=== PATIENT | female | born 1965 | race African-American/Black ===

== ENCOUNTER 2023-09-16 11:35 | Emergency (ER) | payer BC ==
[~2023-09-16] VITALS: Ht 175.3 cm; Wt 90.0 kg
[2023-09-16 11:44] VITALS: O2SAT 100
[2023-09-16 12:03] LABS: BASOPHILS % 1.5 % (0.0-2.0); EOSINOPHILS % 1.9 % (0.0-5.0); HEMATOCRIT. 37.3 % (36.0-48.0); HEMOGLOBIN. 12.3 g/dL (12.0-16.0); LYMPHOCYTES % 20.6 % (20.0-50.0); MEAN CORPUSCULAR HEMOGLOBIN 29.5 pg (28.0-32.0); MEAN CORPUSCULAR VOLUME 89.5 fL (81.0-99.0); MEAN PLATELET VOLUME 8.9 fl (7.4-10.4); PLATELET 143 x1000/uL (130-400); RED BLOOD CELL COUNT 4.17 mill/uL (4.2-5.4); WHITE BLOOD COUNT 6.5 x1000/uL (4.5-11.0)
[2023-09-16 12:29] LABS: ALANINE AMINOTRANSFERASE 19 IU/L (10-49); ALBUMIN 3.6 g/dL (3.2-4.8); ASPARTATE AMINOTRANSFERASE 52 IU/L (<34); BILIRUBIN TOTAL 1.4 mg/dL (0.1-1.0); CALCIUM 8.6 mg/dL (8.7-10.4); CARBON DIOXIDE 20 mEq/L (21-32); CHLORIDE 107 mEq/L (98-107); CREATININE 2.5 mg/dL (0.6-1.0); GLUCOSE 134 mg/dL (70-105); POTASSIUM 4.2 mEq/L (3.5-5.1); SODIUM 135 mEq/L (136-145); TROPONIN I HIGH SENSITIVITY 11 ng/L (3.0-34); UREA NITROGEN BLOOD 25 mg/dL (9-23)
[2023-09-16 13:15] LABS: CLARITY URINE CLOUDY (CLEAR); COLOR URINE YELLOW (YELLOW); GLUCOSE URINE 3+ (NEGATIVE); KETONES URINE NEGATIVE (NEGATIVE); LEUKOCYTE ESTERASE URINE NEGATIVE (NEGATIVE); NITRITE URINE NEGATIVE (NEGATIVE); OCCULT BLOOD URINE NEGATIVE (NEGATIVE); PROTEIN URINE TRACE (NEGATIVE); SPECIFIC GRAVITY URINE 1.021 (1.005-1.030); UROBILINOGEN URINE 0.2 E.U./dL (0.2-1.0)
[2023-09-16 13:29] LABS: RBC URINE 0-2 /hpf (0-2)
[2023-09-16 13:30] LABS: BACTERIA URINE 1+; SQUAMOUS EPITHELIAL CELL URINE 2+ /lpf (RARE/1+); YEAST URINE NONE SEEN
[2023-09-16] MEDS ORDERED: SENN-139 MT (15:38)
[2023-09-16] MEDS ORDERED: NA P133E4 RC (15:38)
[2023-09-16] MEDS ORDERED: POLY17PO3 MT (15:38)
[2023-09-16 16:13] VITALS: BP 137/71; PULSE 75; RESP 20; TEMP 97.6
== END 2023-09-16 16:14 | disposition home or self-care (01) ==
LOC: ER 11:35
DX: K59.00 Constipation, unspecified (principal); E11.9 Type 2 diabetes mellitus without complications; N28.89 Other specified disorders of kidney and ureter
CPT/HCPCS: 36415; 71045; 80053; 81003; 81025; 84484; 85025; 93005; 99285

== ENCOUNTER 2023-10-30 00:29 | Inpatient (IN) | payer MEDICAID ==
[~2023-10-30] VITALS: Ht 154.2 cm; Wt 97.8 kg
[~2023-10-30 00:29] MED LIST: AMLO10TA80 PO; CALC-1249 MT; CARB15DR EACHEYE; CHOL400D7 PO; CRES10 PO; DAPA10TA PO; FINE20TA PO; FISH1CAP34 PO; FURO-151 MT; FURO80TA87 MT; LEVO88TA7 PO; LIOT5TAB11 MT; MECL-299 MT; NA P133E4 RC; POLY17PO3 MT; SENN-139 MT; SPIR50TA5 MT
[2023-10-30 01:01] LABS: BASOPHILS % 1.4 % (0.0-2.0); EOSINOPHILS % 2.7 % (0.0-5.0); HEMATOCRIT. 36.5 % (36.0-48.0); HEMOGLOBIN. 11.9 g/dL (12.0-16.0); MEAN CORPUSCULAR HEMOGLOBIN 29.7 pg (28.0-32.0); MEAN CORPUSCULAR HGB CONC 32.6 g/dL (31.0-37.0); MEAN CORPUSCULAR VOLUME 90.9 fL (81.0-99.0); MEAN PLATELET VOLUME 10.1 fl (7.4-10.4); MONOCYTES % 8.1 % (2.0-8.0); NEUTROPHILS % 75.8 % (40.0-76.0); PLATELET 112 x1000/uL (130-400); RED BLOOD CELL COUNT 4.02 mill/uL (4.2-5.4); RED CELL DISTRIBUTION WIDTH 18.1 % (11.6-14.6); WHITE BLOOD COUNT 6.7 x1000/uL (4.5-11.0)
[2023-10-30 01:10] LABS: CARBON DIOXIDE 19 mEq/L (21-32); CHLORIDE 109 mEq/L (98-107); POTASSIUM 5.7 mEq/L (3.5-5.1); SODIUM 136 mEq/L (136-145)
[2023-10-30 01:11] LABS: CALCIUM 8.5 mg/dL (8.7-10.4)
[2023-10-30 01:16] LABS: CREATININE 3.4 mg/dL (0.6-1.0); GLUCOSE 118 mg/dL (70-105); TROPONIN I HIGH SENSITIVITY 12 ng/L (3.0-34); UREA NITROGEN BLOOD 57 mg/dL (9-23)
[2023-10-30 01:17] LABS: ACETAMINOPHEN < 2 ug/mL (10-30); ALANINE AMINOTRANSFERASE 60 IU/L (10-49); ASPARTATE AMINOTRANSFERASE 104 IU/L (<34)
[2023-10-30 01:18] LABS: BILIRUBIN TOTAL 3.1 mg/dL (0.1-1.0); CREATINE KINASE 119 IU/L (34-145); PROTEIN TOTAL 7.4 g/dL (6.0-8.3)
[2023-10-30 01:20] LABS: THYROID STIMULATING HORMONE 3.14 uIU/mL (0.55-4.78)
[2023-10-30 01:22] LABS: ETHANOL BLOOD < 10 mg/dL (<10)
[2023-10-30 01:45] LABS: INDEX HEMOLYSI 0 (1-3)
[2023-10-30 01:51] LABS: AMMONIA 214 uMol/L (<32)
[2023-10-30] MEDS: LACTULOSE 20G/30ML UDC PO ONE (03:07)
[2023-10-30 03:24] LABS: TROPONIN I HIGH SENSITIVITY 10 ng/L (3.0-34)
[2023-10-30] MEDS: LACTULOSE 20G/30ML UDC PO SCH (08:01)
[2023-10-30] MEDS ORDERED: ACETAMINOPHEN 325MG TABLET PO PRN (10:30)
[2023-10-30] MEDS ORDERED: METOCLOPRAMIDE HCL 10MG/2ML VIAL IV NR (10:30)
[2023-10-30] MEDS ORDERED: CLONIDINE 0.1MG TABLET PO PRN (10:30)
[2023-10-30] MEDS ORDERED: ONDANSETRON HCL 4MG/2ML INJ IV PRN (10:30)
[2023-10-30 11:31] LABS: INR 1.3; PROTHROMBIN TIME 14.6 sec (9.6-11.0)
[2023-10-30] MEDS: NA PHOS,M-B/NA PHOS,DI-BA ENEMA 118ML PR NR (12:41)
[2023-10-30] MEDS: RIFAXIMIN 550 MG TABLET PO SCH (12:42)
[2023-10-30] MEDS ORDERED: LACTULOSE 20G/30ML UDC PO SCH (14:00)
[2023-10-30] MEDS ORDERED: LACTULOSE ENEMA 1,000ML BOTTLE PR SCH (14:45)
[2023-10-30] MEDS: LACTULOSE 300 ML in WATER FOR IRRIGATION,STERILE 700 ML IR SCH (16:44)
[2023-10-30] MEDS ORDERED: SODIUM POLYSTYRENE SULFONATE 15 G/60 ML BOT PO NR (17:30)
[2023-10-30] MEDS ORDERED: SODIUM BICARBONATE 50 MEQ in SODIUM CHLORIDE 0.45% 950 ML IV SCH (18:00)
[2023-10-30] MEDS: SODIUM BICARBONATE 50 MEQ in SODIUM CHLORIDE 0.45% 950 ML IV SCH (18:15)
[2023-10-30 20:15] LABS: CHLORIDE 110 mEq/L (98-107); POTASSIUM 5.7 mEq/L (3.5-5.1); SODIUM 139 mEq/L (136-145)
[2023-10-30 20:16] LABS: CARBON DIOXIDE 16 mEq/L (21-32)
[2023-10-30 20:17] LABS: CALCIUM 8.8 mg/dL (8.7-10.4)
[2023-10-30 20:21] LABS: GLUCOSE 116 mg/dL (70-105)
[2023-10-30 20:22] LABS: UREA NITROGEN BLOOD 62 mg/dL (9-23)
[2023-10-30 20:24] LABS: PHOSPHORUS 5.8 mg/dL (2.5-4.9)
[2023-10-30 20:27] LABS: AMMONIA 185 uMol/L (<32)
[2023-10-30 21:05] VITALS: BP 133/81; PULSE 75; RESP 18; TEMP 98
[2023-10-31] VITALS (10 sets, daily range): BP systolic 109–147; BP diastolic 54–85; PULSE 68–116; RESP 18–23; TEMP 95.9–98.2; O2SAT 95–99
[2023-10-31] MEDS: LACTULOSE 20G/30ML UDC PO SCH (04:00)
[2023-10-31 09:35] LABS: HEMATOCRIT. 35.4 % (36.0-48.0); HEMOGLOBIN. 11.5 g/dL (12.0-16.0); MEAN CORPUSCULAR HEMOGLOBIN 29.7 pg (28.0-32.0); MEAN CORPUSCULAR HGB CONC 32.5 g/dL (31.0-37.0); MEAN CORPUSCULAR VOLUME 91.5 fL (81.0-99.0); MEAN PLATELET VOLUME 9.8 fl (7.4-10.4); PLATELET 108 x1000/uL (130-400); RED BLOOD CELL COUNT 3.87 mill/uL (4.2-5.4); RED CELL DISTRIBUTION WIDTH 19.7 % (11.6-14.6); WHITE BLOOD COUNT 10.9 x1000/uL (4.5-11.0)
[2023-10-31 09:37] LABS: BG BASE EXCESS -9.2 mmol/L (-2.0-2.0); BG CARBOXYHEMOGLOBIN 0.6 % (0.5-1.5); BG FRACTION INSPIRED OXYGEN 30; BG HCO3 ACT 14.8 mmol/L (22.0-26.0); BG METHEMOGLOBIN 0.4 % (0.0-1.5); BG OXYGEN SATURATION 81.8 % (92.0-98.5); BG PCO2 27.2 mmHg (35.0-45.0); BG PH 7.354 (7.350-7.450); BG PO2 50.5 mmHg (75.0-100.0); BG SAMPLE SITE RIGHT RADIAL; BG TOTAL HEMOGLOBIN 12.2 g/dL (12.0-18.0); BG VENT MODE NASAL CANNULA
[2023-10-31 09:38] LABS: DIFFERENTIAL COMMENT 1; POTASSIUM 4.9 mEq/L (3.5-5.1)
[2023-10-31 09:40] LABS: CALCIUM 9.2 mg/dL (8.7-10.4)
[2023-10-31] MEDS: DOCUSATE SODIUM 100MG CAPSULE PO SCH (09:42)
[2023-10-31 09:44] LABS: CREATININE 4.1 mg/dL (0.6-1.0)
[2023-10-31 09:54] LABS: AMMONIA 71 uMol/L (<32)
[2023-10-31] MEDS ORDERED: SODIUM BICARBONATE 8.4% 1 MEQ/ML 50ML SYR IV NR (10:30)
[2023-10-31] MEDS: LORAZEPAM 2MG/ML INJ IV NR (10:31)
[2023-10-31] MEDS: IPRATROPIUM/ALBUTEROL 0.5-3(2.5)MG/3ML NEB HHN PRN (10:41)
[2023-10-31] MEDS: SODIUM BICARBONATE 8.4% 1 MEQ/ML 50ML SYR IV NR (11:41)
[2023-10-31] MEDS ORDERED: SODIUM BICARBONATE 8.4% MEQ/ML 50ML VIAL IV NR (12:00)
[2023-10-31] MEDS ORDERED: ALBUMIN HUMAN 25GM/100ML (25%) IV ONE (15:30)
[2023-10-31 16:22] LABS: D-DIMER 3.22 mg/L FEU (<0.50); INR 1.4; PROTHROMBIN TIME 14.9 sec (9.6-11.0)
[2023-10-31 17:02] LABS: ANISOCYTOSIS 1+; PLATELET ESTIMATE DECREASED
[2023-10-31] MEDS: ALBUMIN HUMAN 25GM/100ML (25%) IV SCH (17:31)
[2023-10-31] MEDS: OCTREOTIDE 1,000 MCG in SODIUM CHLORIDE 0.9% 98 ML IV SCH (17:34)
[2023-10-31 19:01] LABS: LACTIC ACID 7.8 mmol/L (0.4-2.0)
[2023-10-31 22:58] LABS: BG BASE EXCESS -8.2 mmol/L (-2.0-2.0); BG CARBOXYHEMOGLOBIN 0.3 % (0.5-1.5); BG FRACTION INSPIRED OXYGEN 32; BG HCO3 ACT 14.4 mmol/L (22.0-26.0); BG METHEMOGLOBIN 0.1 % (0.0-1.5); BG OXYHEMOGLOBIN 97.6 % (94.0-97.0); BG PCO2 22.1 mmHg (35.0-45.0); BG PH 7.433 (7.350-7.450); BG PO2 116.9 mmHg (75.0-100.0); BG SAMPLE SITE RIGHT BRACHIAL; BG TOTAL HEMOGLOBIN 10.5 g/dL (12.0-18.0); BG VENT MODE NASAL CANNULA
[2023-11-01] VITALS (8 sets, daily range): BP systolic 96–154; BP diastolic 45–101; PULSE 60–85; RESP 11–27; TEMP 96.6–98.2
[2023-11-01 06:56] LABS: POTASSIUM 4.9 mEq/L (3.5-5.1)
[2023-11-01 06:58] LABS: CALCIUM 9.3 mg/dL (8.7-10.4)
[2023-11-01 06:59] LABS: BASOPHILS % 0.9 % (0.0-2.0); EOSINOPHILS % 4.6 % (0.0-5.0); HEMATOCRIT. 28.9 % (36.0-48.0); LYMPHOCYTES % 14.5 % (20.0-50.0); MEAN CORPUSCULAR HEMOGLOBIN 29.4 pg (28.0-32.0); MEAN CORPUSCULAR HGB CONC 33.2 g/dL (31.0-37.0); MEAN CORPUSCULAR VOLUME 88.6 fL (81.0-99.0); MONOCYTES % 7.7 % (2.0-8.0); NEUTROPHILS % 72.3 % (40.0-76.0); PLATELET 60 x1000/uL (130-400); RED BLOOD CELL COUNT 3.26 mill/uL (4.2-5.4); RED CELL DISTRIBUTION WIDTH 19.3 % (11.6-14.6); WHITE BLOOD COUNT 5.1 x1000/uL (4.5-11.0)
[2023-11-01 07:02] LABS: CREATININE 4.4 mg/dL (0.6-1.0)
[2023-11-01 07:15] LABS: PHOSPHORUS 6.8 mg/dL (2.5-4.9)
[2023-11-01 07:21] LABS: INR 1.5; PROTHROMBIN TIME 16.4 sec (9.6-11.0)
[2023-11-01] MEDS ORDERED: LIDOCAINE HCL 1% 10 MG/ML 10ML VIAL ONE (08:09)
[2023-11-01] MEDS ORDERED: SODIUM BICARBONATE 4% (2.4MEQ) 5ML VIAL IV ONE (08:09)
[2023-11-01 09:06] LABS: HEMOGLOBIN. 9.6 g/dL (12.0-16.0)
[2023-11-01] MEDS: ALBUMIN HUMAN 25GM/100ML (25%) IV SCH (10:09)
[2023-11-01] MEDS: PHYTONADIONE 10MG/ML INJ SUBCUT SCH (10:09)
[2023-11-01 11:00] LABS: BODY FLUID MONOCYTES 13 %
[2023-11-01 11:01] LABS: BODY FLUID RBC 2330 /cu mm (0-2000); BODY FLUID WBC 130 /cu mm (0-200)
[2023-11-01 12:32] LABS: HEPATITIS B SURFACE ANTIGEN NEGATIVE (Negative)
[2023-11-01 12:52] LABS: HEPATITIS A AB IGM NEGATIVE (Negative)
[2023-11-01 12:53] LABS: HEPATITIS B CORE AB IGM NEGATIVE (Negative); HEPATITIS C AB NON REACTIVE (Neg) (Negative)
[2023-11-01 13:09] LABS: AMMONIA 38 uMol/L (<32)
[2023-11-02] VITALS (18 sets, daily range): BP systolic 90–128; BP diastolic 41–96; PULSE 58–78; RESP 11–39; TEMP 96.8–98.8
[2023-11-02] MEDS: ACETAMINOPHEN 325MG TABLET PO PRN (00:55)
[2023-11-02 06:50] LABS: BASOPHILS % 1.3 % (0.0-2.0); EOSINOPHILS % 7.4 % (0.0-5.0); HEMATOCRIT. 27.1 % (36.0-48.0); LYMPHOCYTES % 15.1 % (20.0-50.0); MEAN CORPUSCULAR HEMOGLOBIN 29.5 pg (28.0-32.0); MEAN CORPUSCULAR VOLUME 89.4 fL (81.0-99.0); MONOCYTES % 8.5 % (2.0-8.0); NEUTROPHILS % 67.7 % (40.0-76.0); RED BLOOD CELL COUNT 3.03 mill/uL (4.2-5.4); RED CELL DISTRIBUTION WIDTH 19.5 % (11.6-14.6); WHITE BLOOD COUNT 3.9 x1000/uL (4.5-11.0)
[2023-11-02 07:11] LABS: CHLORIDE 107 mEq/L (98-107); POTASSIUM 4.9 mEq/L (3.5-5.1); SODIUM 140 mEq/L (136-145)
[2023-11-02 07:12] LABS: INR 1.6; PROTHROMBIN TIME 17.1 sec (9.6-11.0)
[2023-11-02 07:15] LABS: CARBON DIOXIDE 22 mEq/L (21-32)
[2023-11-02 07:16] LABS: CALCIUM 8.5 mg/dL (8.7-10.4)
[2023-11-02 07:17] LABS: UREA NITROGEN BLOOD 65 mg/dL (9-23)
[2023-11-02 07:18] LABS: LACTIC ACID 2.5 mmol/L (0.4-2.0)
[2023-11-02 07:20] LABS: ALANINE AMINOTRANSFERASE 29 IU/L (10-49); AMMONIA 28 uMol/L (<32); CREATININE 4.4 mg/dL (0.6-1.0); GLUCOSE 77 mg/dL (70-105)
[2023-11-02 07:22] LABS: ALBUMIN 3.8 g/dL (3.2-4.8); ASPARTATE AMINOTRANSFERASE 52 IU/L (<34)
[2023-11-02 07:23] LABS: BILIRUBIN DIRECT 1.5 mg/dL (<=3.0); BILIRUBIN TOTAL 2.5 mg/dL (0.1-1.0); PHOSPHORUS 5.2 mg/dL (2.5-4.9); PROTEIN TOTAL 6.4 g/dL (6.0-8.3)
[2023-11-02 07:29] LABS: DIFFERENTIAL COMMENT 1
[2023-11-02] MEDS ORDERED: LIDOCAINE HCL 1% 10 MG/ML 10ML VIAL ONE (07:38)
[2023-11-02 08:57] LABS: MEAN PLATELET VOLUME 9.1 fl (7.4-10.4)
[2023-11-03] VITALS (12 sets, daily range): BP systolic 91–111; BP diastolic 44–84; PULSE 57–78; RESP 11–30; TEMP 97.5–98.7
[2023-11-03 06:03] LABS: AMMONIA 32 uMol/L (<32)
[2023-11-03 06:50] LABS: CLARITY URINE CLEAR (CLEAR); COLOR URINE DARK YELLOW (YELLOW); GLUCOSE URINE NEGATIVE (NEGATIVE); KETONES URINE TRACE (NEGATIVE); LEUKOCYTE ESTERASE URINE TRACE (NEGATIVE); NITRITE URINE NEGATIVE (NEGATIVE); OCCULT BLOOD URINE NEGATIVE (NEGATIVE); PROTEIN URINE NEGATIVE (NEGATIVE); SPECIFIC GRAVITY URINE 1.017 (1.005-1.030); UROBILINOGEN URINE 0.2 E.U./dL (0.2-1.0)
[2023-11-03 06:57] LABS: *AMPHETAMINES SCREEN URINE NEGATIVE (NEGATIVE); *BARBITURATES SCREEN URINE NEGATIVE (NEGATIVE); *BENZODIAZEPINES SCREEN URINE NEGATIVE (NEGATIVE); *COCAINE SCREEN URINE NEGATIVE (NEGATIVE); CANNABINOID URINE SCREEN PRESUMPTIVE POSITIVE (NEGATIVE); ECSTASY MDMA SCREEN URINE NEGATIVE (NEGATIVE); METHADONE URINE SCREEN NEGATIVE (NEGATIVE); OPIATES URINE SCREEN NEGATIVE (NEGATIVE); PHENCYCLIDINE URINE SCREEN NEGATIVE (NEGATIVE)
[2023-11-03 07:10] LABS: SQUAMOUS EPITHELIAL CELL URINE 1+ /lpf (RARE/1+)
[2023-11-03 07:13] LABS: RBC URINE NONE SEEN /hpf (0-2)
[2023-11-03 07:14] LABS: BACTERIA URINE NONE SEEN; YEAST URINE 1+
[2023-11-03 08:03] LABS: SODIUM URINE RANDOM < 10 mEq/L
[2023-11-03 08:04] LABS: CREATININE URINE RANDOM 163.3 mg/dL
[2023-11-03 09:41] LABS: BASOPHILS % 1.2 % (0.0-2.0); EOSINOPHILS % 8.4 % (0.0-5.0); HEMATOCRIT. 30.2 % (36.0-48.0); LYMPHOCYTES % 10.6 % (20.0-50.0); MEAN CORPUSCULAR HEMOGLOBIN 30.3 pg (28.0-32.0); MEAN CORPUSCULAR HGB CONC 33.2 g/dL (31.0-37.0); MEAN CORPUSCULAR VOLUME 91.2 fL (81.0-99.0); MONOCYTES % 9.9 % (2.0-8.0); NEUTROPHILS % 69.9 % (40.0-76.0); PLATELET 52 x1000/uL (130-400); RED BLOOD CELL COUNT 3.32 mill/uL (4.2-5.4); RED CELL DISTRIBUTION WIDTH 19.6 % (11.6-14.6); WHITE BLOOD COUNT 5.1 x1000/uL (4.5-11.0)
[2023-11-03 09:54] LABS: POTASSIUM 4.8 mEq/L (3.5-5.1)
[2023-11-03 09:55] LABS: CALCIUM 7.6 mg/dL (8.7-10.4)
[2023-11-03 13:21] LABS: OSMOLALITY URINE 380 mOsm/kg (500-850)
[2023-11-04] VITALS (21 sets, daily range): BP systolic 87–121; BP diastolic 42–84; PULSE 61–91; RESP 12–20; TEMP 97.3–98
[2023-11-04 07:00] LABS: POTASSIUM 4.8 mEq/L (3.5-5.1)
[2023-11-04 07:01] LABS: BASOPHILS % 1.5 % (0.0-2.0); CALCIUM 7.7 mg/dL (8.7-10.4); EOSINOPHILS % 9.6 % (0.0-5.0); HEMATOCRIT. 28.5 % (36.0-48.0); HEMOGLOBIN. 9.5 g/dL (12.0-16.0); LYMPHOCYTES % 14.1 % (20.0-50.0); MEAN CORPUSCULAR HEMOGLOBIN 29.8 pg (28.0-32.0); MEAN CORPUSCULAR HGB CONC 33.4 g/dL (31.0-37.0); MEAN CORPUSCULAR VOLUME 89.2 fL (81.0-99.0); MEAN PLATELET VOLUME 9.9 fl (7.4-10.4); MONOCYTES % 11.8 % (2.0-8.0); RED CELL DISTRIBUTION WIDTH 19.6 % (11.6-14.6); WHITE BLOOD COUNT 4.6 x1000/uL (4.5-11.0)
[2023-11-04 07:40] LABS: DIFFERENTIAL COMMENT 1; PLATELET 48 x1000/uL (130-400)
[2023-11-04 07:52] LABS: AMMONIA 145 uMol/L (<32)
[2023-11-04] MEDS: LACTULOSE 20G/30ML UDC PO SCH ×2 (16:00→21:10)
[2023-11-04] MEDS ORDERED: LACTULOSE 20G/30ML UDC PO SCH (22:00)
[2023-11-05] VITALS (12 sets, daily range): BP systolic 88–143; BP diastolic 45–78; PULSE 65–117; RESP 10–22; TEMP 96.9–97.5
[2023-11-05 06:49] LABS: BASOPHILS % 1.2 % (0.0-2.0); EOSINOPHILS % 6.3 % (0.0-5.0); HEMATOCRIT. 30.2 % (36.0-48.0); LYMPHOCYTES % 10.7 % (20.0-50.0); MEAN CORPUSCULAR HEMOGLOBIN 30.1 pg (28.0-32.0); MONOCYTES % 14.3 % (2.0-8.0); NEUTROPHILS % 67.5 % (40.0-76.0); RED BLOOD CELL COUNT 3.32 mill/uL (4.2-5.4); RED CELL DISTRIBUTION WIDTH 19.6 % (11.6-14.6); WHITE BLOOD COUNT 5.2 x1000/uL (4.5-11.0)
[2023-11-05 06:51] LABS: INR 1.5; PROTHROMBIN TIME 16.6 sec (9.6-11.0)
[2023-11-05 06:57] LABS: ADD RBC MORPHOLOGY YES; DIFFERENTIAL COMMENT 1
[2023-11-05 07:24] LABS: CHLORIDE 105 mEq/L (98-107); POTASSIUM 4.1 mEq/L (3.5-5.1); SODIUM 138 mEq/L (136-145)
[2023-11-05 07:25] LABS: CARBON DIOXIDE 23 mEq/L (21-32)
[2023-11-05 07:26] LABS: CALCIUM 7.8 mg/dL (8.7-10.4)
[2023-11-05 07:30] LABS: CREATININE 3.5 mg/dL (0.6-1.0); GLUCOSE 92 mg/dL (70-105); UREA NITROGEN BLOOD 37 mg/dL (9-23)
[2023-11-05 07:32] LABS: ALANINE AMINOTRANSFERASE 30 IU/L (10-49); ALBUMIN 3.1 g/dL (3.2-4.8); ASPARTATE AMINOTRANSFERASE 64 IU/L (<34)
[2023-11-05 07:33] LABS: BILIRUBIN TOTAL 3.4 mg/dL (0.1-1.0); PROTEIN TOTAL 6.2 g/dL (6.0-8.3)
[2023-11-05 07:56] LABS: AMMONIA 244 uMol/L (<32)
[2023-11-05] MEDS: SODIUM BICARBONATE 100 MEQ in DEXTROSE 5% WATER 900 ML IV SCH (08:36)
[2023-11-05] MEDS: LACTULOSE ENEMA 1,000ML BOTTLE PR SCH (11:24)
[2023-11-05 15:56] LABS: ANISOCYTOSIS 2+; PLATELET 48 x1000/uL (130-400); PLATELET ESTIMATE MARKEDLY DECREASED; TARGET CELLS 1+
[2023-11-05 16:00] LABS: PLATELET 48 x1000/uL (130-400)
[2023-11-05] MEDS ORDERED: LACTULOSE ENEMA 1,000ML BOTTLE PR PRN (17:30)
[2023-11-05] MEDS: LACTULOSE 20G/30ML UDC PO SCH (22:58)
[2023-11-06] VITALS (12 sets, daily range): BP systolic 108–168; BP diastolic 60–95; PULSE 72–97; RESP 15–25; TEMP 97.1–97.8
[2023-11-06 06:32] LABS: AMMONIA 76 uMol/L (<32)
[2023-11-06 06:44] LABS: BASOPHILS % 1.2 % (0.0-2.0); CARBON DIOXIDE 23 mEq/L (21-32); CHLORIDE 105 mEq/L (98-107); EOSINOPHILS % 6.2 % (0.0-5.0); HEMATOCRIT. 30.4 % (36.0-48.0); MEAN CORPUSCULAR HEMOGLOBIN 29.8 pg (28.0-32.0); MEAN CORPUSCULAR HGB CONC 32.9 g/dL (31.0-37.0); MEAN CORPUSCULAR VOLUME 90.6 fL (81.0-99.0); MEAN PLATELET VOLUME 9.7 fl (7.4-10.4); MONOCYTES % 12.6 % (2.0-8.0); PLATELET 59 x1000/uL (130-400); POTASSIUM 3.1 mEq/L (3.5-5.1); RED BLOOD CELL COUNT 3.35 mill/uL (4.2-5.4); RED CELL DISTRIBUTION WIDTH 20.3 % (11.6-14.6); SODIUM 141 mEq/L (136-145); WHITE BLOOD COUNT 7.1 x1000/uL (4.5-11.0)
[2023-11-06 06:45] LABS: CALCIUM 8.4 mg/dL (8.7-10.4)
[2023-11-06 06:49] LABS: GLUCOSE 109 mg/dL (70-105)
[2023-11-06 06:50] LABS: UREA NITROGEN BLOOD 42 mg/dL (9-23)
[2023-11-06 06:51] LABS: ALBUMIN 3.2 g/dL (3.2-4.8)
[2023-11-06 06:52] LABS: ALANINE AMINOTRANSFERASE 31 IU/L (10-49); ASPARTATE AMINOTRANSFERASE 75 IU/L (<34); PROTEIN TOTAL 6.4 g/dL (6.0-8.3)
[2023-11-06 06:53] LABS: BILIRUBIN TOTAL 4.5 mg/dL (0.1-1.0); INR 1.5; PROTHROMBIN TIME 16.1 sec (9.6-11.0)
[2023-11-06] MEDS: PHYTONADIONE 10MG/ML INJ SUBCUT SCH (12:32)
[2023-11-06] MEDS: POTASSIUM CHLORIDE 20MEQ TABLET SR PO NR (12:32)
[2023-11-07] VITALS (12 sets, daily range): BP systolic 70–153; BP diastolic 39–95; PULSE 60–86; RESP 10–27; TEMP 97.4–98.4; O2SAT 100
[2023-11-07 06:46] LABS: BASOPHILS % 1.8 % (0.0-2.0); EOSINOPHILS % 6.6 % (0.0-5.0); HEMATOCRIT. 29.4 % (36.0-48.0); HEMOGLOBIN. 9.8 g/dL (12.0-16.0); LYMPHOCYTES % 14.1 % (20.0-50.0); MEAN CORPUSCULAR HEMOGLOBIN 30.3 pg (28.0-32.0); MEAN CORPUSCULAR HGB CONC 33.2 g/dL (31.0-37.0); MEAN CORPUSCULAR VOLUME 91.3 fL (81.0-99.0); MEAN PLATELET VOLUME 9.2 fl (7.4-10.4); MONOCYTES % 10.6 % (2.0-8.0); NEUTROPHILS % 66.9 % (40.0-76.0); PLATELET 51 x1000/uL (130-400); RED BLOOD CELL COUNT 3.22 mill/uL (4.2-5.4); RED CELL DISTRIBUTION WIDTH 20.5 % (11.6-14.6)
[2023-11-07 06:49] LABS: AMMONIA 31 uMol/L (<32)
[2023-11-07 06:50] LABS: CHLORIDE 106 mEq/L (98-107); POTASSIUM 3.6 mEq/L (3.5-5.1); SODIUM 140 mEq/L (136-145)
[2023-11-07 06:51] LABS: CARBON DIOXIDE 26 mEq/L (21-32); INR 1.5; PROTHROMBIN TIME 15.8 sec (9.6-11.0)
[2023-11-07 06:56] LABS: CREATININE 4.3 mg/dL (0.6-1.0); GLUCOSE 86 mg/dL (70-105); UREA NITROGEN BLOOD 42 mg/dL (9-23)
[2023-11-07 06:57] LABS: ALANINE AMINOTRANSFERASE 33 IU/L (10-49)
[2023-11-07 06:58] LABS: ALBUMIN 3.1 g/dL (3.2-4.8); ASPARTATE AMINOTRANSFERASE 85 IU/L (<34); BILIRUBIN TOTAL 4.1 mg/dL (0.1-1.0); PROTEIN TOTAL 6.1 g/dL (6.0-8.3)
[2023-11-07] MEDS ORDERED: SODIUM BICARBONATE 4% (2.4MEQ) 5ML VIAL IV ONE (07:22)
[2023-11-07] MEDS ORDERED: LIDOCAINE HCL 1% 10 MG/ML 10ML VIAL ONE (07:22)
[2023-11-07] MEDS: ALBUMIN HUMAN 25GM/100ML (25%) IV SCH (08:21)
[2023-11-07] MEDS: LACTULOSE 20G/30ML UDC PO SCH (17:01)
[2023-11-07] MEDS: BACITRACIN 14GM TUBE TOP SCH (17:02)
[2023-11-08] MEDS ORDERED: ALBUMIN HUMAN 25GM/100ML (25%) IV SCH
== END 2023-11-07 20:02 | disposition short-term general hospital (02) | DRG 279 ==
LOC: ER 00:29 → 7EST 04:56 → EDBEDREQ 05:26 → EDBEDREQSVC 17:43 → ER 21:03 → 5EST 10-31 16:20
PROVIDERS: ADMIT Internal Medicine; ATTEND Internal Medicine
PROC: 0W9G3ZZ Drainage of Peritoneal Cavity, Percutaneous Approach (ICD-10-PCS; principal; 2023-11-01)
PROC: 5A1D70Z Performance of Urinary Filtration, Intermittent, Less than 6 Hours Per Day (ICD-10-PCS; 2023-11-02)
PROC: 05HM33Z Insertion of Infusion Device into Right Internal Jugular Vein, Percutaneous Approach (ICD-10-PCS; 2023-11-02)
PROC: B543ZZA Ultrasonography of Right Jugular Veins, Guidance (ICD-10-PCS; 2023-11-02)
PROC: 5A1D70Z Performance of Urinary Filtration, Intermittent, Less than 6 Hours Per Day (ICD-10-PCS; 2023-11-04)
PROC: 0W9G3ZZ Drainage of Peritoneal Cavity, Percutaneous Approach (ICD-10-PCS; 2023-11-07)
DX: K72.91 Hepatic failure, unspecified with coma (principal); D69.6 Thrombocytopenia, unspecified; I12.0 Hypertensive chronic kidney disease with stage 5 chronic kidney disease or end stage renal disease; D68.9 Coagulation defect, unspecified; N18.6 End stage renal disease; N17.9 Acute kidney failure, unspecified; K74.60 Unspecified cirrhosis of liver; K76.6 Portal hypertension; R18.8 Other ascites; E87.5 Hyperkalemia; K56.41 Fecal impaction; R16.1 Splenomegaly, not elsewhere classified; Z99.2 Dependence on renal dialysis; E03.9 Hypothyroidism, unspecified; E11.22 Type 2 diabetes mellitus with diabetic chronic kidney disease; E78.5 Hyperlipidemia, unspecified; N28.1 Cyst of kidney, acquired; K80.20 Calculus of gallbladder without cholecystitis without obstruction; E66.9 Obesity, unspecified; Z68.41 Body mass index [BMI] 40.0-44.9, adult
CPT/HCPCS: 36415; 36556; 36600; 49083; 71045; 74176; 76705; 76937; 80048; 80053; 80076; 80305; 80307; 80320; 80329; 81003; 82040; 82140; 82375; 82550; 82570; 82805; 82962; 83605; 83615; 83735; 83935; 84100; 84300; 84443; 84484; 85025; 85379; 86705; 86706; 86709; 87340; 88108; 90935; 92610; 93005; 94640; 97162; 99285; C1752; J2060; J2354; J3430; J3490; J7050; J7070; P9047; G0480

== ENCOUNTER 2025-01-06 07:27 | Emergency (ER) | payer BC, MEDICARE ==
[~2025-01-06] VITALS: Ht 170.2 cm; Wt 86.0 kg
[2025-01-06 07:37] VITALS: TEMP 36.9; O2SAT 100
[2025-01-06 08:55] VITALS: BP 132/69; PULSE 78; RESP 16; O2SAT 99
== END 2025-01-06 09:23 | disposition home or self-care (01) ==
LOC: ER 07:27
DX: M79.662 Pain in left lower leg (principal); E11.9 Type 2 diabetes mellitus without complications; I10 Essential (primary) hypertension; Z79.899 Other long term (current) drug therapy; Z94.0 Kidney transplant status; Z94.4 Liver transplant status
CPT/HCPCS: 93971; 99284